=== PATIENT | male | born 1955 | race Caucasian/White ===

== ENCOUNTER 2023-01-20 07:15 | Emergency (ER) | payer MEDICARE ==
[~2023-01-20] VITALS: Ht 187 cm; Wt 104.0 kg
[~2023-01-20 07:15] MED LIST: DICL50TA4 PO; HYDR-757 PO; SULF-222 PO
--- NOTE | 2023-01-20 07:28 | ED Lower Extremity ---
General Chief Complaint: Lower Extremity Stated Complaint: LT KNEE PAIN | Source: patient Exam Limitations: no limitations History of Present Illness Date Seen by Provider: Jan 20, 2023 Time Seen by Provider: 07:27 Initial Comments Patient is a 67-year-old male who presents to the emergency room with a chief complaint of left knee pain. He states he has had some left knee pain and left leg issues over the course of the last 10 days. Woke up this morning with more intense pain that is "all over" the knee. When pressed he states that the medial aspect is the most sore. Limping. No direct trauma. No prior surgeries to the left knee. Does not take any daily medications. Did take 500 mg of Tylenol this morning. Had Reji wrap prior to arrival. No numbness tingling or weakness in the extremity. No swelling in the calf. No recent prolonged immobility or travel. Has never had a blood clot. States the pain seems to radiate up into the posterior superior iliac crest area and down to the foot. Denies back pain. Onset: other (10 days worse today) Severity: severe Pain/Injury Location: left knee Method of Injury: unknown Modifying Factors: Improves With Immobilization; Worse With Movement Allergies and Home Medications Allergies Coded Allergies: diclofenac (Verified Allergy, Mild, 09/08/16) Patient Home Medication List Home Medication List Reviewed: Yes Diclofenac Potassium (Diclofenac Potassium) 50 Mg Tablet, 50 MG PO Q6H PRN for ANKLE PAIN Prescribed by: BILL CASTRO on 09/07/16 0910 Hydrocodone Bit/Acetaminophen (Lamar 5-325 Tablet) 1 Each Tablet, 1 EA PO Q6H PRN for MILD PAIN Prescribed by: BROOKLYNN NEWTON on 07/30/14 1544 Hydrocodone/Acetaminophen (Hydrocodone-Acetamin 5-325 mg) 5 Mg-325 Mg Tablet, 1 TAB PO Q6H PRN for PAIN-MODERATE (5-7) Prescribed by: MAT TRACEY on 01/20/23 0840 Prednisone (Prednisone) 10 Mg Tab.ds.pk, 10 MG PO DAILY Prescribed by: MAT TRACEY on 01/20/23 0840 Trimethoprim/Sulfamethoxazole (Bactrim DS) 1 Ea Tablet, 1 EA PO BID Prescribed by: BROOKLYNN NEWTON on 07/30/14 1544 Review of Systems Constitutional: see HPI Respiratory: no symptoms reported Cardiovascular: no symptoms reported Musculoskeletal: joint pain (left knee) Past Qjsrmxd-Vahpeq-Nxples Hx Seasonal Allergies Seasonal Allergies: Yes Past Medical History Arthritis Physical Exam Vital Signs Vital Signs - First Documented 01/20/23 07:25 Temp 35.7 Pulse 99 Resp 16 B/P (MAP) 161/92 (115) Pulse Ox 97 Capillary Refill : Height, Weight, BMI Height: 6'1" Weight: 215lbs. oz. 97.659099ll; BMI Method:Stated General Appearance: WD/WN, no apparent distress Respiratory: no respiratory distress, no accessory muscle use Hips: bilateral hip non-tender, bilateral hip normal inspection, bilateral hip normal range of motion, bilateral hip no evidence of injury; left hip pain (Discomfort to palpation left posterior superior iliac crest/SI joint) Legs: bilateral leg non-tender, bilateral leg normal inspection, bilateral leg normal range of motion, bilateral leg no evidence of injury Knees: left knee joint effusion (Small effusion on exam), left knee pain (Painful range of motion flexion and extension), left knee soft tissue te nderness (Medial joint line), left knee other (Patient has significant pain with medial stress, negative anterior and posterior drawer; less pain with lateral stress) Ankles: bilateral ankle non-tender, bilateral ankle normal inspection, bilateral ankle normal range of motion, bilateral ankle no evidence of injury Feet: bilateral foot non-tender, bilateral foot normal inspection, bilateral foot normal range of motion, bilateral foot no evidence of injury Neurologic/Tendon: normal sensation, normal motor functions, normal tendon functions Neurologic/Psychiatric: alert, normal mood/affect, oriented x 3 Skin: normal color, warm/dry Progress/Results/Core Measures Results/Orders My Orders Orders - MAT TRACEY MD Knee, Left, 3 Views (01/20/23 07:35) Prednisone Tablet (Deltasone Tablet) (01/20/23 07:45) Medications Given in ED Current Medications Medications Dose Ordered Sig/Justen Route Start Time Stop Time Status Last Admin Dose Admin Prednisone 50 mg ONCE ONCE PO 01/20/23 07:45 01/20/23 07:46 DC 01/20/23 07:56 50 MG Vital Signs/I&O 01/20/23 07:25 Temp 35.7 Pulse 99 Resp 16 B/P (MAP) 161/92 (115) Pulse Ox 97 Diagnostic Imaging Diagonstic Imaging: Xray Comments [email or web address] [place], [place] NAME: MIYA ALARCON [facility] REC#: [id number] PT STATUS: REG ER : 1955 PHYSICIAN: MAT TRACEY MD ADMIT DATE: 01/20/23/ER Draft Date of Exam:01/20/23 KNEE, LEFT, 3 VIEWS INDICATION: Left knee pain. TIME OF EXAM: 8:07 AM FINDINGS: 3 views left knee demonstrate medial and lateral compartments be fairly well-maintained. There is some spurring of the tibial spines. There is fairly significant patellofemoral degenerative change. No fracture, dislocation or joint effusion is identified. IMPRESSION: Degenerative changes. No acute bony abnormality is detected. Dictated on workstation # [id number] Dict: 01/20/23 0802 Trans: 01/20/23 08 [id number] Interpreted by: GANESH BRAGA MD Electronically signed by: Departure Impression Primary Impression: Internal derangement of left knee Disposition: HOME, SELF-CARE Condition: Stable Departure-Patient Inst. Decision time for Depature: 08:38 Referrals: JOSE BARRON DO (PCP/Family) Primary Care Physician MARTINEZ TORRES MD Patient Instructions: Internal Derangement of the Knee Add. Discharge Instructions: Wear the knee immobilizer as needed for comfort while you are up and walking around. When you are seated keep the knee elevated and an ice pack for the next few days. Take the hydrocodone 5 mg tablets 1 every 6 hours as needed for pain. Keep in mind hydrocodone can cause sleepiness as well as constipation. If you are needing to take hydrocodone please take a stool softener daily. Do not drive and take this medication. Prednisone taper will also help with the swelling and discomfort in your left knee. If the knee becomes red, more swollen, if you develop a fever please return to the emergency room for reevaluation. Please follow-up with Dr. Barron or Dr. TORRES, orthopedics for further evaluation and management of the left knee pain. Scripts Hydrocodone/Acetaminophen (Hydrocodone-Acetamin 5-325 mg) 5 Mg-325 Mg Tablet 1 TAB PO Q6H PRN for PAIN-MODERATE (5-7), #12 TAB Prov: MAT TRACEY MD 01/20/23 Prednisone (Prednisone) 10 Mg Tab.ds.pk 10 MG PO DAILY, #42 EA Take 6 tabs(60mg)daily,decrease by 1 tab(10mg)every other day. Prov: MAT TRACEY MD 01/20/23 Copy Copies To 1: JOSE BARRON V DO; MARTINEZ TORRES MD, KATHRYN M MD Jan 20, 2023 07:27
[2023-01-20] MEDS ORDERED: predniSONE 20 MG TAB PO ONE (07:45)
--- NOTE | 2023-01-20 08:06 | Diagnostic Imaging Report ---
INDICATION: Left knee pain. TIME OF EXAM: 8:07 AM FINDINGS: 3 views left knee demonstrate medial and lateral compartments be fairly well-maintained. There is some spurring of the tibial spines. There is fairly significant patellofemoral degenerative change. No fracture, dislocation or joint effusion is identified. IMPRESSION: Degenerative changes. No acute bony abnormality is detected. Dictated by: Dictated on workstation # [id number]
[2023-01-20] MEDS ORDERED: ACHD5005 PO (08:40)
[2023-01-20] MEDS ORDERED: PRED10TA22 PO (08:40)
[2023-01-20 09:00] VITALS: BP 161/92
== END 2023-01-20 09:08 | disposition home or self-care (01) ==
LOC: EDUNIT# 07:15 → ER 07:19
DX: M23.92 Unspecified internal derangement of left knee (principal); Z88.6 Allergy status to analgesic agent
CPT/HCPCS: 73562

== ENCOUNTER → 2023-01-28 | Outpatient (CLI) | payer MEDICARE ==
[~2023-01-28] MED LIST changes: +ACHD5005 PO; +PRED10TA22 PO
== END ==
LOC: ORTHO 10:25
PROVIDERS: ATTEND Orthopaedic Surgery
DX: M17.12 Unilateral primary osteoarthritis, left knee (principal)
CPT/HCPCS: 99203